=== PATIENT | male | born 1950 | race African-American/Black ===

== ENCOUNTER → 2018-08-28 | Day surgery (SDC) | payer MEDICARE ==
[~2018-08-28] VITALS: Ht 182.9 cm; Wt 111.1 kg
[~2018-08-28] MED LIST: ASPIR 8181 MG PO; CRESTOR10 MG PO; FARXIGA PO; GLIMEPIRIDE2 MG PO; HYDROCHLOROTHIA25 MG PO; LIDOCAINE 1% W/EPINEPHRINE 20 ML VIAL ONE; METFORMIN HCL500 MG PO; RAMIPRIL5 MG PO; TRULICITY SC
--- OUTSIDE RECORDS SUMMARY | 2018-08-28 09:45 | XMS REPORT | Clinical Summary ---
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 Active rosuvastatin (CRESTOR) 10 Take 10 mg by 0 MG tablet mouth every 9 evening. Active hydroCHLOROthiazide Take 12.5 mg 0 (HYDRODIURIL) 12.5 MG by mouth tablet every morning. Active TRULICITY 0.75 mg/0.5 mL Inject 0.75 0 pen injector mg under the 9 skin every 7 days. Pt takes on Fridays Active FARXIGA 10 mg tablet Take 10 mg by 0 mouth every 9 morning. Active aspirin (ECOTRIN) 81 MG Take 81 mg by 0 enteric coated tablet mouth every morning. Active glimepiride (AMARYL) 2 MG Take 2 mg by 0 tablet mouth 2 (two) times a day. Active metFORMIN (GLUCOPHAGE) Take 1,000 mg 0 500 mg tablet by mouth 2 (two) times a day with meals. 09/05/2018 Active ondansetron ODT (ZOFRAN Take 1 tablet 10 tablet 0 ODT) 4 MG disintegrating (4 mg total) 9 tablet by mouth every 8 (eight) hours as needed for nausea or vomiting for up to 30 days. 08/16/2018 cefpodoxime (VANTIN) 200 Take 1 tablet 20 tablet 0 MG tablet (200 mg 9 total) by mouth 2 (two) times a day for 10 days. Active Problems Not on file Encounters Care Team Description Date Type Specialty Sergo Rivera MD Hypomagnesemia (Primary Dx); Urinary tract infection without hematuria, site unspecified; Fatigue, unspecified type; Dehydration 08/06/2018 Emergency Emergency Medicine after 08/27/2017 Social History Date Tobacco Use Types Packs/Day Years Used Never Smoker Smokeless Tobacco: Never Used Alcohol Use Drinks/Week oz/Week Comments Yes social Sex Assigned at Date Recorded Not on file Industry Job Start Date Occupation Not on file Not on file Not on file Travel End Travel History Travel Start No recent travel history available. Last Filed Vital Signs Time Taken Vital Sign Reading 08/06/2018 8:45 PM CDT Blood Pressure 136/65 08/06/2018 8:45 PM CDT Pulse 99 08/06/2018 3:47 PM CDT Temperature 37.4 C (99.4 F) 08/06/2018 8:45 PM CDT Respiratory Rate 20 08/06/2018 8:45 PM CDT Oxygen Saturation 95% - Inhaled Oxygen - Concentration 08/06/2018 3:47 PM CDT Weight 111 kg (244 lb) 08/06/2018 3:47 PM CDT Height 182.9 cm (6') 08/06/2018 3:47 PM CDT Body Mass Index 33.09 Plan of Treatment Health Maintenance Due Date Last Done Comments COLON CANCER SCREENING 2001 SHINGLES VACCINES (#1) 2001 65+ PNEUMOCOCCAL VACCINE 2016 (1 of 2 - PCV13) PNEUMOCOCCAL 2016 POLYSACCHARIDE VACCINE AGE 65 AND OVER INFLUENZA VACCINE 12/19/2018 Procedures Comments Procedure Name Priority Date/Time Associated Diagnosis BLOOD CULTURE, AEROBIC & Routine 08/06/2018 ANAEROBIC 7:35 PM CDT URINE CULTURE STAT 08/06/2018 7:24 PM CDT GRAM STAIN STAT 08/06/2018 7:24 PM CDT URINALYSIS SCREEN AND STAT 08/06/2018 MICROSCOPY, WITH REFLEX 7:[address] HEAD WO CONTRAST STAT 08/06/2018 4:35 PM CDT RESPIRATORY PATHOGEN Routine 08/06/2018 PANEL 4:25 PM CDT INFLUENZA ANTIGEN TEST, Routine 08/06/2018 REFLEX NEGATIVE TO RPP 4:25 PM CDT ESTIMATED GFR STAT 08/06/2018 4:22 PM CDT CREATINE KINASE, TOTAL STAT 08/06/2018 (CPK) 4:22 PM CDT B NATRIURETIC PEPTIDE STAT 08/06/2018 4:22 PM CDT TROPONIN STAT 08/06/2018 4:22 PM CDT LACTIC ACID LEVEL, SEPSIS Timed 08/06/2018 - NOW AND REPEAT 2X EVERY 4:22 PM CDT 3 HOURS MAGNESIUM LEVEL STAT 08/06/2018 4:22 PM CDT PHOSPHORUS LEVEL STAT 08/06/2018 4:22 PM CDT COMPREHENSIVE METABOLIC STAT 08/06/2018 PANEL 4:22 PM CDT PARTIAL THROMBOPLASTIN STAT 08/06/2018 TIME (PTT) 4:22 PM CDT PROTHROMBIN TIME WITH INR STAT 08/06/2018 4:22 PM CDT HC COMPLETE BLD COUNT STAT 08/06/2018 W/AUTO DIFF 4:22 PM CDT BLOOD CULTURE, AEROBIC & Routine 08/06/2018 ANAEROBIC 4:22 PM CDT XR CHEST 1 VW PORTABLE STAT 08/06/2018 4:21 PM CDT ECG ED PRELIMINARY Routine 08/06/2018 INTERPRETATION 3:54 PM CDT ECG 12-LEAD STAT 08/06/2018 3:51 PM CDT VENOUS BLOOD GAS STAT 08/06/2018 2:30 PM CDT after 08/27/2017 Results * Blood culture, aerobic & anaerobic (08/06/2018 7:35 PM CDT) Only the most recent of 2 results within the time period is included. Blood culture isolate No growth after 5 days of [facility] incubation. HOSPITAL Comment: Specimen Information Specimen Source: Blood Specimen Site: Antecubital, left Specimen Blood - Antecubital, left Performing Organization Address City/State/Zipcode Phone Number [facility] DEPARTMENT OF [address] [place] [address] PATHOLOGY AND GENOMIC MEDICINE [address] * Gram stain (08/06/2018 7:24 PM CDT) Gram stain result Occasional WBC's [facility] Occasional Gram negative rods [facility] Comment: Specimen Information Specimen Source: Urine Specimen Site: Clean catch Specimen Urine Performing Organization Address City/[facility]/Zipcode Phone Number [facility] DEPARTMENT OF [address] [place] [address] PATHOLOGY AND GENOMIC MEDICINE [address] * Urine culture (08/06/2018 7:24 PM CDT) Urine culture isolate Proteus mirabilis [facility] >10-5 cfu/ml HOSPITAL The performance characteristics of this assay on this isolate were validated by the Microbiology Laboratory at [facility].This source has not been approved by the U.. Food and Drug Administration.The results are not intended to be used as the sole means for clinical diagnosis or patient management.The Microbiology Laboratory is authorized under the clinical Laboratory Improvement Amendments of 1988 (CLIA-88) to perform high complexity testing. testing. (A) Comment: Specimen Information Specimen Source: Urine Specimen Site: Clean catch Previous comment was modified by I/DAGOBERTO at 11:40 on 08/08/2018 The performance characteristics of this assay on this isolate were validated by the Microbiology Laboratory at [facility]. This source has not been approved by the U.. Food and Drug Administration. The results are not intended to be used as the sole means for clinical diagnosis or patient management. The Microbiology Laboratory is authorized under the clinical Laboratory Improvement Amendments of 1988 (CLIA-88) to perform high complexity testing. Specimen Urine Antibiotic Method Susceptibility Organism Ampicillin ALDAIR <=2 mcg/mL: Susceptible Proteus mirabilis Amoxicillin/Clavulanate ALDAIR <=2/1 mcg/mL: Susceptible Proteus mirabilis Amikacin ALDAIR <=4 mcg/mL: Susceptible Proteus mirabilis Aztreonam ALDAIR <=1 mcg/mL: Susceptible Proteus mirabilis Ceftazidime ALDAIR <=0.5 mcg/mL: Susceptible Proteus mirabilis Ciprofloxacin ALDAIR <=0.5 mcg/mL: Susceptible Proteus mirabilis Ceftriaxone ALDAIR <=0.5 mcg/mL: Susceptible Proteus mirabilis Cefuroxime Sodium ALDAIR <=4 mcg/mL: Susceptible Proteus mirabilis Cefazolin ALDAIR 8 mcg/mL: Resistant Proteus mirabilis Cefepime ALDAIR <=0.5 mcg/mL: Susceptible Proteus mirabilis Nitrofurantoin ALDAIR >64 mcg/mL: Resistant Proteus mirabilis Cefoxitin ALDAIR <=4 mcg/mL: Susceptible Proteus mirabilis Gentamicin ALDAIR 2 mcg/mL: Susceptible Proteus mirabilis Levofloxacin ALDAIR <=1 mcg/mL: Susceptible Proteus mirabilis Tobramycin ALDAIR 2 mcg/mL: Susceptible Proteus mirabilis Ampicillin/Sulbactam ALDAIR <=1/0.5 mcg/mL: Susceptible Proteus mirabilis Tetracycline ALDAIR >8 mcg/mL: Resistant Proteus mirabilis Piperacillin/Tazobactam ALDAIR <=2/4 mcg/mL: Susceptible Proteus mirabilis Ertapenem ALDAIR <=0.125 mcg/mL: Susceptible Proteus mirabilis Tigecycline ALDAIR mcg/mL: Resistant Proteus mirabilis Performing Organization Address City/State/Zipcode Phone Number [facility] DEPARTMENT OF [address] [place] [address] PATHOLOGY AND GENOMIC MEDICINE [address] * Urinalysis screen and microscopy, with reflex to culture (08/06/2018 7:00 PM CDT) Specimen site Clean catch [facility] Color, UA Yellow [facility] Appearance, UA Slightly-Cloudy [facility] Specific gravity, UA 1.035 1.001 - 1.035 [facility] pH, UA 6.0 5.0 - 8.5 [facility] Protein, UA 1+ (A) Negative [facility] Glucose, UA 3+ (A) Negative [facility] Ketones, UA 1+ (A) Negative [facility] Bilirubin, UA Negative Negative [facility] Blood, UA Negative Negative [facility] Nitrite, UA Negative Negative [facility] Urobilinogen, UA Negative <2.0 [facility] Leukocyte esterase, UA Moderate (A) Negative [facility] Epithelial cells, UA Few /HPF [facility] WBC, UA 61-80 (H) 0 - 1 /HPF [facility] RBC, UA 6-10 (H) 0 - 5 /HPF [facility] Bacteria, UA Trace None seen [facility] Yeast, UA None seen [facility] Yeast with pseudohyphae, None seen [facility] Specimen Urine Performing Organization Address City/State/Zipcode Phone Number [facility] DEPARTMENT OF [address] [place] [address] [place] [address] PATHOLOGY AND GENOMIC MEDICINE [facility] [id number] [place] [address] [place] [address] [facility] * CT Head Wo Contrast (08/06/2018 4:35 PM CDT) Narrative Performed At EXAMINATION:CT HEAD WO CONTRAST RADIANT CT IMAGING WAS PERFORMED WITH ITERATIVE RECONSTRUCTION TECHNIQUE AND/OR AUTOMATED EXPOSURE CONTROL TO REDUCE RADIATION DOSE. CLINICAL HISTORY:generalized weakness COMPARISON:None. FINDINGS: 1. There is no acute intracranial abnormality. Specifically there is no intracranial hemorrhage, mass effect or acute infarction. 2.There is chronic lacunar infarction in the posterior basal ganglia region on the right.. There are minimal if any nonspecific cerebral white matter microvascular changes. There is mild cerebral and cerebellar volume loss. 3.Atherosclerotic calcifications noted in the distal internal carotid and to a lesser degree vertebral arteries. 4.There are small amount mucus in the sphenoid sinus. There is minimal mucosal thickening in the ethmoid and maxillary sinuses. There is a focal benign appearing sclerosis in the clivus measuring roughly 6 mm. IMPRESSION: No acute abnormality demonstrated. [facility]-[id number] Procedure Note Interface, Radiology Results Incoming - 08/06/2018 4:53 PM CDT EXAMINATION: CT HEAD WO CONTRAST CT IMAGING WAS PERFORMED WITH ITERATIVE RECONSTRUCTION TECHNIQUE AND/OR AUTOMATED EXPOSURE CONTROL TO REDUCE RADIATION DOSE. CLINICAL HISTORY: generalized weakness COMPARISON: None. FINDINGS: 1. There is no acute intracranial abnormality. Specifically there is no intracranial hemorrhage, mass effect or acute infarction. 2. There is chronic lacunar infarction in the posterior basal ganglia region on the right.. There are minimal if any nonspecific cerebral white matter microvascular changes. There is mild cerebral and cerebellar volume loss. 3. Atherosclerotic calcifications noted in the distal internal carotid and to a lesser degree vertebral arteries. 4. There are small amount mucus in the sphenoid sinus. There is minimal mucosal thickening in the ethmoid and maxillary sinuses. There is a focal benign appearing sclerosis in the clivus measuring roughly 6 mm. IMPRESSION: No acute abnormality demonstrated. [facility]-[id number] Performing Organization Address City/[facility] [place] [address] * Respiratory pathogen panel (08/06/2018 4:25 PM CDT) Respiratory pathogen Negative for all pathogens [facility] panel tested: HOSPITAL Negative for Adenovirus Negative for Coronavirus HKU1 Negative for Coronavirus NL63 Negative for Coronavirus 229E Negative for Coronavirus OC43 Negative for Human Metapneumovirus Negative for Rhinovirus/Enterovirus Negative for Influenza A Negative for Influenza A/H1 Negative for Influenza A/H3 Negative for Influenza A/H1-2009 Negative for Influenza B Negative for Parainfluenza Virus 1 Negative for Parainfluenza Virus 2 Negative for Parainfluenza Virus 3 Negative for Parainfluenza Virus 4 Negative for Respiratory Syncytial Virus Negative for Bordetella pertussis Negative for Chlamydophila pneumoniae Negative for Mycoplasma pneumoniae This real-time PCR assay detects the presence of nucleic acids (RNA or DNA) for the respiratory pathogens listed. A result of "Not-detected" does not exclude the possibility of the presence of one or more pathogens at concentrations less than the detectable limits of the assay. Comment: Specimen Information Specimen Source: Nares Specimen Site: Not specified Specimen Nares - Not specified Performing Organization Address City/[facility] Phone Number [facility] DEPARTMENT [address] [place] [address] PATHOLOGY AND GENOMIC MEDICINE [address] * Influenza antigen test, reflex negative to RPP (08/06/2018 4:25 PM CDT) Influenza antigen Negative for Influenza A/B [facility] antigen. [facility] Comment: Specimen Information Specimen Source: Nares Specimen Site: Not specified Specimen Nares - Not specified Performing Organization Address [facility] Phone Number [address] [place] [address] PATHOLOGY AND GENOMIC MEDICINE [address] * Estimated GFR (08/06/2018 4:22 PM CDT) Estimated GFR 90 mL/min/1.73 m2 [facility] Comment: [facility] CatergoryUnitsInte rpretation G1 >=90 Normal or high G2 60-89Mildly decreased [id number] Mildly to moderately decreased [id number] Moderately to severely decreased G4 15-29Severely decreased G5 <15Kidney failure The eGFR was calculated using the Chronic Kidney Disease Epidemiology Collaboration (CKD-EPI) equation. Interpretation is based on recommendations of the National Kidney Foundation-Kidney Disease Outcomes Quality Initiative (NKF-KDOQI) published in 2014. Specimen Plasma specimen Performing Organization Address [facility] [place] Phone Number [address] [place] [address] PATHOLOGY AND GENOMIC MEDICINE [address] * Lactic acid level, SEPSIS - Now and repeat 2x every 3 hours (08/06/2018 4:22 PM CDT) Lactic acid 1.3 0.5 - 2.2 mmol/L [facility] Specimen Plasma specimen Performing Organization Address [facility] [place] Phone Number [address] [place] [address] [facility] MEDICINE [address] * Troponin (08/06/2018 4:22 PM CDT) Troponin <0.300 0.000 - 0.300 ng/mL [facility] Comment: [facility] 0.30 - 1.49 ng/mlMay indicate increased risk of acute coronary syndrome. >=1.5 ng/ml Consistent with acute myocardial infarction. The diagnostic value of a single normal or non-diagnostic result is questionable.Serial samples at 2-6 hour intervals are required to rule out acute myocardial injury. Specimen Plasma specimen Performing Organization Address [facility] Phone Number [address] [place] [address] PATHOLOGY AND GENOMIC MEDICINE [address] * Partial thromboplastin time, activated (08/06/2018 4:22 PM CDT) PTT 33.5 23.0 - 36.0 sec [facility] Comment: [facility] PTT therapeutic range for unfractionated heparin is 61.0-112.0 seconds which corresponds to Anti-Xa 0.3-0.7 U/ml. Specimen Blood Performing Organization Address [facility] Phone Number [address] [place] [address] PATHOLOGY AND GENOMIC MEDICINE [address] * Prothrombin time with INR (08/06/2018 4:22 PM CDT) Prothrombin time 14.3 11.5 - 14.5 sec [facility] INR 1.1 [facility] Comment: [facility] The International Normalized Ratio (INR) is a therapeutic monitoring tool for patients who are stable on oral anticoagulant therapy. An INR of 2.0-3.0 is suggested for deep vein thrombosis/pulmonary embolism. Specimen Blood Performing Organization Address City/[facility] Phone Number [address] [place] [address] PATHOLOGY AND GENOMIC MEDICINE [address] * CBC with platelet and differential (08/06/2018 4:22 PM CDT) WBC 21.04 (H) 4.50 - 11.00 k/uL [facility] RBC 5.31 4.40 - 6.00 m/uL [facility] HGB 15.2 14.0 - 18.0 g/dL [facility] HCT 46.7 41.0 - 51.0 % [facility] MCV 87.9 82.0 - 100.0 fL [facility] MCH 28.6 27.0 - 34.0 pg [facility] MCHC 32.5 31.0 - 37.0 g/dL [facility] RDW - SD 48.5 37.0 - 55.0 fL [facility] MPV 10.3 8.8 - 13.2 fL [facility] Platelet count 200 150 - 400 k/uL [facility] Nucleated RBC 0.00 /100 WBC [facility] Neutrophils 79.7 (H) 39.0 - 69.0 % [facility] Lymphocytes 8.4 (L) 25.0 - 45.0 % [facility] Monocytes 11.0 (H) 0.0 - 10.0 % [facility] Eosinophils 0.0 0.0 - 5.0 % [facility] Basophils 0.2 0.0 - 1.0 % [facility] Specimen Blood Performing Organization Address City/[facility] Phone Number [address] [place] [address] [facility] MEDICINE [address] * Phosphorus level (08/06/2018 4:22 PM CDT) Phosphorus 3.3 2.4 - 4.5 mg/dL [facility] Specimen Plasma specimen Performing Organization Address [facility] Phone Number [address] [place] [address] PATHOLOGY [address] * B natriuretic peptide (08/06/2018 4:22 PM CDT) BNP 21 0 - 100 pg/mL [facility] Specimen Blood Performing Organization Address [facility] [place] [address] [place] [address] [facility] MEDICINE [address] * Magnesium level (08/06/2018 4:22 PM CDT) Magnesium 1.5 (L) 1.6 - 2.4 mg/dL [facility] Specimen Plasma specimen Performing Organization Address City/[facility] Phone Number [facility] [place] OF [id number] [place] [address] [place] [address] PATHOLOGY AND GENOMIC MEDICINE [address] * Creatine kinase, total (CPK) (08/06/2018 4:22 PM CDT) Creatine kinase 59 39 - 308 U/L [facility] Specimen Plasma specimen Performing Organization Address City/State/Zipcode Phone Number [address] [place] [address] PATHOLOGY AND GENOMIC MEDICINE [address] * Comprehensive metabolic panel (08/06/2018 4:22 PM CDT) Sodium 138 135 - 148 mEq/L [facility] Potassium 3.6 3.5 - 5.0 mEq/L [facility] Chloride 98 98 - 112 mEq/L [facility] CO2 25 24 - 31 mEq/L [facility] Anion gap 15@ANIO 7 - 15 mEq/L [facility] BUN 12 8 - 23 mg/dL [facility] Creatinine 1.00 0.70 - 1.20 mg/dL [facility] Glucose 157 (H) 65 - 99 mg/dL [facility] Calcium 9.1 8.8 - 10.2 mg/dL [facility] Protein 7.2 6.3 - 8.3 g/dL [facility] Comment: [facility] [place] 4.6-7.0 g/dL 1 week 4.4-7.6 g/dL 7 months-1year 5.1-7.3 g/dL 1-2 years5.6-7 .5 g/dL >3 years6.0-8 .0 g/dL 18-150 6.3-8.3 g/dL Albumin 3.9 3.5 - 5.0 g/dL [facility] A/G ratio 1.2 0.7 - 3.8 [facility] Alkaline phosphatase 82 40 - 129 U/L [facility] AST 12 10 - 50 U/L [facility] ALT 10 5 - 50 U/L [facility] Total bilirubin 0.8 0.0 - 1.2 mg/dL [facility] Specimen Plasma specimen Performing Organization Address [facility] [place] Number [place] [address] [place] [address] PATHOLOGY AND GENOMIC MEDICINE [facility] [address] [place] [address] [facility] * XR Chest 1 Vw Portable (08/06/2018 4:21 PM CDT) Narrative Performed At EXAMINATION:XR CHEST 1 VW PORTABLE RADIANT CLINICAL HISTORY:generalized weakness XR CHEST 1 VW PORTABLEimages are submitted COMPARISON:NONE FINDINGS: Lines/tubes:None. Heart and mediastinum:Tortuous atherosclerotic thoracic aorta. Otherwise, unremarkable. Lungs:The lungs are well inflated and clear. There is no evidence of pneumonia or pulmonary edema. Pleura:There is no pleural effusion or pneumothorax. Bones:unremarkable. IMPRESSION: Negative for acute cardiopulmonary disease. [id number] Procedure Note Hm Interface, Radiology Results Incoming - 08/06/2018 4:26 PM CDT EXAMINATION: XR CHEST 1 VW PORTABLE CLINICAL HISTORY: generalized weakness XR CHEST 1 VW PORTABLE images are submitted COMPARISON: NONE FINDINGS: Lines/tubes: None. Heart and mediastinum: Tortuous atherosclerotic thoracic aorta. Otherwise, unremarkable. Lungs: The lungs are well inflated and clear. There is no evidence of pneumonia or pulmonary edema. Pleura: There is no pleural effusion or pneumothorax. Bones: unremarkable. IMPRESSION: Negative for acute cardiopulmonary disease. [id number] Performing Organization Address [facility] Phone Number [facility] [address] [place] [address] * ECG ED Preliminary Interpretation - Not an Order (08/06/2018 3:54 PM CDT) Narrative Performed At Sergo Rivera MD 08/07/20181:58 AM ECG ED Preliminary Interpretation - Not an Order Performed by: Sergo Rivera MD Authorized by: Sergo Rivera MD ECG reviewed by ED Physician in the absence of a life sciences teacher: yes Interpretation: Interpretation: abnormal Rate: ECG rate:114 ECG rate assessment: tachycardic Rhythm: Rhythm: sinus tachycardia Ectopy: Ectopy: none QRS: QRS axis:Left QRS intervals:Normal Conduction: Conduction: normal ST segments: ST segments:Non-specific T waves: T waves: non-specific * ECG 12 lead (08/06/2018 3:51 PM CDT) Ventricular rate 114 [facility] Atrial rate 114 [facility] LA interval 136 [facility] QRSD interval 78 [facility] QT interval 312 [facility] QTC interval 430 [facility] P axis 1 56 [facility] QRS axis 1 -8 [facility] T wave axis 52 [facility] EKG impression Sinus tachycardia-Possible [facility] Left atrial enlargement-Borderline ECG-No previous ECGs available- Narrative Performed At Performing Organization Address City/[facility] Phone Number [facility] MUSE [address] [place] [address] * Venous blood gas (08/06/2018 2:30 PM CDT) pH, venous 7.47 (H) 7.32 - 7.42 [facility] pCO2, venous 37 (L) 45 - 51 mmHg [facility] pO2, venous 56 (H) 25 - 40 mmHg [facility] Base excess, venous 3 (H) -2 - 2 meq/L [facility] O2 saturation, venous 91 (H) 40 - 70 % [facility] Bicarbonate, venous 26.7 21.0 - 28.0 mmol/L [facility] FiO2, inspired O2% Unknown % [facility] Specimen Blood Performing Organization Address City/[facility]/Zipcode Phone Number [place] [address] [place] [address] PATHOLOGY AND GENOMIC MEDICINE [facility] [id number] [place] [address] [place] [address] [facility] after 08/27/2017 Insurance Payer Benefit Subscriber ID Type Phone Address Plan / Group AETNA MEDICARE AETNA xxxxxxxx HMO MEDICARE HMO/PPO [facility] Advance Directives Patient has advance care planning documents on file. For more information, jc cueto contact: Hai Jacob[address] [place] [address]
--- NOTE | 2018-09-30 18:43 | Operative Report ---
DATE OF PROCEDURE: 08/28/2018 SURGEON: Herminio Licea MD REPORT TITLE: Cardiology Procedure Note. INDICATION FOR PROCEDURE: Cryptogenic stroke and history of syncope. PREPROCEDURE ASSESSMENT: The patient's medical history, social history, and prior experience with anesthesia was reviewed prior to the procedure. PROCEDURES PERFORMED: A LINQ implantable loop recorder placement. PROCEDURE IN DETAIL: The patient was brought to the holding area in a fasting state. The patient's chest was prepped and draped in a sterile fashion. Lidocaine with 1% epinephrine was infiltrated in the subcutaneous tissue overlying the fourth intercostal space to achieve adequate local anesthesia. LINQ implantable loop recorder was placed in the fourth intercostal space without significant difficulty. The incision site was closed using a Dermabond and dressing was applied. The patient tolerated the procedure well. There were no immediate complications. ESTIMATED BLOOD LOSS: 1 mL. GRAFTS AND IMPLANTS: LINQ implantable loop recorder. SPECIMEN REMOVED: None. COMPLICATIONS: None. FINAL RECOMMENDATIONS: 1. Continue optimal medical therapy and risk factor control. 2. Follow up in clinic 2 weeks post procedure. Herminio Licea MD KVP/MODL /[id number]
== END | disposition home or self-care (01) ==
LOC: CATH LAB 09:42
PROVIDERS: ATTEND Internal Medicine
DX: R00.2 Palpitations (principal); R07.9 Chest pain, unspecified; R09.89 Other specified symptoms and signs involving the circulatory and respiratory systems; I10 Essential (primary) hypertension; E78.2 Mixed hyperlipidemia; E11.9 Type 2 diabetes mellitus without complications; Z88.8 Allergy status to other drugs, medicaments and biological substances; Z79.82 Long term (current) use of aspirin; Z79.84 Long term (current) use of oral hypoglycemic drugs; Z86.73 Personal history of transient ischemic attack (TIA), and cerebral infarction without residual deficits; Z82.49 Family history of ischemic heart disease and other diseases of the circulatory system
CPT/HCPCS: 33285; C1764